=== PATIENT | male | born 1990 | race American Indian/Alaskan Native ===

== ENCOUNTER 2019-05-13 13:03 | Emergency (ER) | payer SELFPAY ==
[2019-05-13 13:10] VITALS: BP 133/68
--- NOTE | 2019-05-13 13:11 | Emergency Department Report ---
Chief Complaint: Medical Clearance Stated Complaint: CHECK UP Time Seen by Provider: 05/13/19 13:08 - HPI History of Present Illness: 28-year-old male that presents with for "check-up". Patient denies any symptoms. Denies any fever, chills, headache, nausea, vomiting, chest pain, or SOB. Stated wants blood drawn for a physical exam for self. - Exam Physical Exam: Denies any symptoms. MSE screening note: Focused history and physical exam performed. Due to findings the following was ordered: ED Medical Decision Making - Medical Decision Making 28-year-old male that presents with for non-medical emergency. Will give patient a follow-up to PCP. ED Disposition for MSE Clinical Impression: Regular check-up Disposition: MED SCREENING EXAM-LEFT Is pt being admited?: No Does the pt Need Aspirin: No Condition: Stable Additional Instructions: Follow-up with a primary care doctor in 3-5 days or if symptoms worsen and continue return to the emergency department as soon as possible. Referrals: PRIMARY [facility] [Referring] - 3-5 Days ABENA HARPER MD [Staff Physician] - 3-5 Days [facility] [Outside] - 3-5 Days [facility] [Outside] - 3-5 Days
== END 2019-05-13 13:08 | disposition left against medical advice (07) ==
LOC: ED 13:03
DX: Z00.8 Encounter for other general examination (principal); Z91.041 Radiographic dye allergy status